=== PATIENT | female | born 1995 | race Two or more races ===

== ENCOUNTER 2019-02-05 17:52 | Emergency (ER) | payer SELFPAY ==
[~2019-02-05] VITALS: Ht 170.2 cm; Wt 78.5 kg
[2019-02-05 18:05] VITALS: Ht 170.2 cm; Wt 78.5 kg
[2019-02-05 18:54] VITALS: BP 119/70
== END 2019-02-05 18:54 | disposition home or self-care (01) ==
LOC: ED 17:52
DX: K04.7 Periapical abscess without sinus (principal)